=== PATIENT | female | born 1945 | race Caucasian/White ===

== ENCOUNTER 2017-05-16 13:28 | Emergency (ER) | payer MEDICARE, OTHER ==
[~2017-05-16] VITALS: Ht 154.9 cm; Wt 68.7 kg
[~2017-05-16 13:28] MED LIST: ALEN70 PO; BENI20TA25 PO; CYMB60CA PO; EZET10 PO; HYDR15TA PO; LIPI10TA PO
[2017-05-16 14:17] VITALS: BP 147/70; PULSE 80; RESP 16; TEMP 97.9; O2SAT 98
[2017-05-16] MEDS ORDERED: SODIUM CHLOR 0.9% 1000 ML INJ 1,000 ML IV SCH (14:34)
[2017-05-16] MEDS ORDERED: CYMB60CA PO (14:43)
[2017-05-16] MEDS ORDERED: BENI5TAB4 PO (14:43)
[2017-05-16] MEDS ORDERED: CYMB30CA PO (14:43)
[2017-05-16] MEDS ORDERED: LIPI10TA PO (14:43)
[2017-05-16] MEDS ORDERED: PLAQ200T PO (14:43)
[2017-05-16] MEDS ORDERED: FOSA70TA PO (14:43)
[2017-05-16] MEDS ORDERED: ONDANSETRON HCL 4 MG/2 ML VIAL IVP ONE (14:45)
[2017-05-16] MEDS ORDERED: SODIUM CHLORIDE 0.9% FLUSH 10 ML FLUSH IV FLUSH PRN (14:45)
[2017-05-16] MEDS ORDERED: MORPHINE SULFATE 4 MG/ML INJ IV PUSH ONE (14:45)
[2017-05-16 14:57] VITALS: RESP 16; O2SAT 98
[2017-05-16 15:03] LABS: BILIRUBIN, URINE NEG (NEG); BLOOD, URINE TRACE (NEG); GLUCOSE,URINE NEG (NEG); KETONE, URINE NEG (NEG); NITRITE,URINE NEG (NEG); PH, URINE 5.5 (5.0-8.5); URINE COLOR YELLOW (YELLW/STRAW); URINE LEUKOCYTE ESTERASE NEG (NEG)
[2017-05-16 15:05] LABS: AUTOMATED NEUTROPHIL # 3.1 TH/MM3 (1.8-7.7); BASOPHIL % 0.7 % (0.0-2.0); EOSINOPHIL # 0.1 TH/MM3 (0-0.4); EOSINOPHIL % 2.8 % (0.0-4.0); HEMATOCRIT 38.7 % (35.0-46.0); HEMOGLOBIN 12.8 GM/DL (11.6-15.3); LYMPH % 19.1 % (9.0-44.0); LYMPHOCYTE # 0.8 TH/MM3 (1.0-4.8); MEAN CELL VOLUME 90.7 FL (80.0-100.0); MEAN CORPUSCULAR HGB CONC 33.2 % (32.0-36.0); MEAN PLATELET VOLUME 6.9 FL (7.0-11.0); MONO % 9.3 % (0.0-8.0); MONOCYTE # 0.4 TH/MM3 (0-0.9); NEUT % 68.1 % (16.0-70.0); PLATELET COUNT 235 TH/MM3 (150-450); RED BLOOD COUNT 4.27 MIL/MM3 (4.00-5.30); RED CELL DISTRIBUTION WIDTH 13.2 % (11.6-17.2); WHITE BLOOD COUNT 4.4 TH/MM3 (4.0-11.0)
[2017-05-16 15:13] LABS: RBC, URINE 0-3 /hpf (0-3); SQUAMOUS EPITHELIAL CELL URINE 0-5 /hpf (0-5); WBC, URINE 0-2 /hpf (0-5)
[2017-05-16 15:14] LABS: CHLORIDE 105 MEQ/L (98-107); SODIUM (NA) 139 MEQ/L (136-145)
[2017-05-16 15:17] LABS: CALCIUM 8.2 MG/DL (8.5-10.1)
[2017-05-16 15:18] LABS: ALBUMIN 3.4 GM/DL (3.4-5.0); BICARBONATE 27.4 MEQ/L (21.0-32.0); BLOOD UREA NITROGEN 8 MG/DL (7-18); GLUCOSE,RANDOM 95 MG/DL (74-106)
[2017-05-16 15:20] LABS: ALT (GPT) 22 U/L (10-53)
[2017-05-16 15:21] LABS: AST (GOT) 20 U/L (15-37); CREATININE 0.66 MG/DL (0.50-1.00); GLOMERULAR FILTRATION RATE 89 ML/MIN (>89)
[2017-05-16 15:22] LABS: TOTAL BILIRUBIN ADULT 0.5 MG/DL (0.2-1.0); TOTAL PROTEIN 6.7 GM/DL (6.4-8.2)
[2017-05-16 15:23] LABS: ALKALINE PHOSPHATASE 65 U/L (45-117)
[2017-05-16] MEDS ORDERED: IOHEXOL 350 MG/ML 10 ML VIAL (for RAD DIAG) IVCONTRAST ONE (15:40)
--- NOTE | 2017-05-16 15:59 | RADRPT ---
EXAM DATE/TIME: 05/16/2017 15:37 [facility] COMPARISON: No previous studies available for comparison. INDICATIONS : Left lower quadrant abdomen pain. IV CONTRAST: 100 cc Omnipaque 350 (iohexol) IV ORAL CONTRAST: No oral contrast ingested. RADIATION DOSE: 14.35 CTDIvol (mGy) MEDICAL HISTORY : Hypertension. SURGICAL HISTORY : None. ENCOUNTER: Initial ACUITY: 3 days PAIN SCALE: 7/10 LOCATION: Left lower quadrant abdomen TECHNIQUE: Volumetric scanning of the abdomen and pelvis was performed. Using automated exposure control and ad justment of the mA and/or kV according to patient size, radiation dose was kept as low as reasonably achievable to obtain optimal diagnostic quality images. DICOM format image data is available electro nically for review and comparison. FINDINGS: The lung base is are clear. The liver and spleen are free of focal defects Mild prominence of the pancreatic duct. I don't see pancreatitis. The adrenal glands are unremarkable. There is symmetrical renal function. There is no ascites or ad enopathy appreciated. The cecum and descending colon are unremarkable The descending and transverse colon appear normal In the pelvis there are multiple diverticuli in the sigmoid colon. The bladder and adnexal regions a re unremarkable. Review of bone windows reveals only degenerative changes. CONCLUSION: Probable mild chronic pancreatitis with dilatation of the pancreatic duct. There is mild gaseous distention without inflammatory changes. Multiple diverticuli sigmoid colon without diverticulitis. Cruz Robison MD FACR on May 16, 2017 at 15:54 Board Certified Radiologist. This report was verified electronically.
[2017-05-16] MEDS ORDERED: LOMO2.5T PO (16:14)
[2017-05-16] MEDS ORDERED: POTASSIUM CHLORIDE 20 MEQ CONTROLLED RELEASE TAB PO ONE (16:15)
--- NOTE | 2017-05-16 16:15 | PD ---
HPI Chief Complaint: GI Complaint Time Seen by Provider: 14:28 Travel History International Travel<30 days: No Contact w/Intl Traveler<30days: No Traveled to known affect area: No History of Present Illness HPI 71-year-old female reports 4-5 days of nausea and diarrhea. She denies bloody stool. She vomited several times on the first day of her symptoms however has not since. Subjective patient was started on Augmentin and Zofran for his a prior which patient states helped significantly. No fever. Generalized abdominal pain is reported which is slightly worse with palpation. Pain severity is 6/10. PFSH Past Medical History Autoimmune Disease: Yes (RHUMATOID ARTHRITIS) Depression: Yes High Cholesterol: Yes Diminished Hearing: No Hypertension: Yes Immunizations Current: Yes Tetanus Vaccination: < 5 Years PNEUMOCCOCAL Vaccine (Year): 2005 ?: Not Social History Alcohol Use: Yes (1 GLASS OF WINE A DAY) Tobacco Use: Yes (2 CIGS ADAY) Substance Use: No Allergies-Medications (Allergen,Severity, Reaction): Coded Allergies: No Known Allergies (Unverified Adverse Reaction, Unknown, 05/16/17) Reported Meds & Prescriptions Reported Meds & Active Scripts Active Reported Fosamax (Alendronate Sodium) 70 Mg Tab 70 Mg PO Q7D Lipitor (Atorvastatin Calcium) 10 Mg Tab 10 Mg PO HS Benicar (Olmesartan) 5 Mg Tab 10 Mg PO DAILY Plaquenil (Hydroxychloroquine Sulfate) 200 Mg Tab 400 Mg PO DAILY Take with food Cymbalta DR (Duloxetine HCl) 30 Mg Capdr 30 Mg PO DAILY Cymbalta DR (Duloxetine HCl) 60 Mg Capdr 60 Mg PO DAILY Review of Systems Except as stated in HPI: all other systems reviewed are Neg General / Constitutional: No: Fever Physical Exam Narrative GENERAL: 71-year-old female pleasant well-nourished well-developed Vital Signs Date Time Temp Pulse Resp B/P (MAP) Pulse Ox O2 Delivery O2 Flow Rate FiO2 05/16/17 14:57 16 98 Room Air 05/16/17 14:17 97.9 80 16 147/70 (95) 98 SKIN: Warm and dry. HEAD: Atraumatic. Normocephalic. EYES: Pupils equal and round. No scleral icterus. No injection or drainage. ENT: No nasal bleeding or discharge. Mucous membranes pink and moist. NECK: Trachea midline. No JVD. CARDIOVASCULAR: Regular rate and rhythm. RESPIRATORY: No accessory muscle use. Clear to auscultation. Breath sounds equal bilaterally. GASTROINTESTINAL: Mild generalized nonspecific tenderness is noted. Abdomen is soft. No rebound or guarding. MUSCULOSKELETAL: Extremities without clubbing, cyanosis, or edema. No obvious deformities. NEUROLOGICAL: Awake and alert. No obvious cranial nerve deficits. Motor grossly within normal limits. Five out of 5 muscle strength in the arms and legs. Normal speech. PSYCHIATRIC: Appropriate mood and affect; insight and judgment normal. Data Data Last Documented VS Vital Signs Date Time Temp Pulse Resp B/P (MAP) Pulse Ox O2 Delivery O2 Flow Rate FiO2 05/16/17 14:57 16 98 Room Air 05/16/17 14:17 97.9 80 147/70 (95) Vital signs reviewed Orders Orders Complete Blood Count With Diff (05/16/17 14:34) Comprehensive Metabolic Panel (05/16/17 14:34) Lipase (05/16/17 14:34) Urinalysis - C+S If Indicated (05/16/17 14:34) Ct Abd/Pel W Iv Contrast(Rout) (05/16/17 14:34) Iv Access Insert/Monitor (05/16/17 14:34) Ecg Monitoring (05/16/17 14:34) Oximetry (05/16/17 14:34) Morphine Inj (Morphine Inj) (05/16/17 14:45) Ondansetron Inj (Zofran Inj) (05/16/17 14:45) Sodium Chlor 0.9% 1000 Ml Inj (Ns 1000 M (05/16/17 14:34) Sodium Chloride 0.9% Flush (Ns Flush) (05/16/17 14:45) Iohexol 350 Inj (Omnipaque 350 Inj) (05/16/17 15:40) Ed Discharge Order (05/16/17 16:06) Labs Laboratory Tests Test 05/16/17 14:40 White Blood Count 4.4 TH/MM3 Red Blood Count 4.27 MIL/MM3 Hemoglobin 12.8 GM/DL Hematocrit 38.7 % Mean Corpuscular Volume 90.7 FL Mean Corpuscular Hemoglobin 30.0 PG Mean Corpuscular Hemoglobin Concent 33.2 % Red Cell Distribution Width 13.2 % Platelet Count 235 TH/MM3 Mean Platelet Volume 6.9 FL Neutrophils (%) (Auto) 68.1 % Lymphocytes (%) (Auto) 19.1 % Monocytes (%) (Auto) 9.3 % Eosinophils (%) (Auto) 2.8 % Basophils (%) (Auto) 0.7 % Neutrophils # (Auto) 3.1 TH/MM3 Lymphocytes # (Auto) 0.8 TH/MM3 Monocytes # (Auto) 0.4 TH/MM3 Eosinophils # (Auto) 0.1 TH/MM3 Basophils # (Auto) 0.0 TH/MM3 CBC Comment DIFF FINAL Differential Comment Urine Color YELLOW Urine Turbidity CLEAR Urine pH 5.5 Urine Specific [place] LESS/EQUAL 1.005 Urine Protein NEG mg/dL Urine Glucose (UA) NEG mg/dL Urine Ketones NEG mg/dL Urine Occult Blood TRACE Urine Nitrite NEG Urine Bilirubin NEG Urine Urobilinogen 0.2 MG/DL Urine Leukocyte Esterase NEG Urine RBC 0-3 /hpf Urine WBC 0-2 /hpf Urine Squamous Epithelial Cells 0-5 /hpf Microscopic Urinalysis Comment CULT NOT INDICATED Blood Urea Nitrogen 8 MG/DL Creatinine 0.66 MG/DL Random Glucose 95 MG/DL Total Protein 6.7 GM/DL Albumin 3.4 GM/DL Calcium Level 8.2 MG/DL Alkaline Phosphatase 65 U/L Aspartate Amino Transf (AST/SGOT) 20 U/L Alanine Aminotransferase (ALT/SGPT) 22 U/L Total Bilirubin 0.5 MG/DL Sodium Level 139 MEQ/L Potassium Level 3.3 MEQ/L Chloride Level 105 MEQ/L Carbon Dioxide Level 27.4 MEQ/L Anion Gap 7 MEQ/L Estimat Glomerular Filtration Rate 89 ML/MIN Lipase 180 U/L MDM Medical Decision Making Medical Screen Exam Complete: Yes Emergency Medical Condition: Yes Medical Record Reviewed: Yes Differential Diagnosis Constipation, Gastritis, Acute Cholecystitis, Biliary Colic, Pancreatitis, GOINS , Hepatitis, Bowel Obstruction, Cystitis, Mesenteric Ischemia, AAA, Appendicitis , Renal Stone/Hydronephrosis, GERD, perforated viscous Narrative Course CBC & BMP Diagram 05/16/17 14:40 Total Protein 6.7, Albumin 3.4, Calcium Level 8.2 L, Alkaline Phosphatase 65, Aspartate Amino Transf (AST/SGOT) 20, Alanine Aminotransferase (ALT/SGPT) 22, Total Bilirubin 0.5 Lipase is normal Urinalysis shows no UTI CT reveals possible mild chronic pancreatitis which is considered very unlikely in the absence of a history of pancreatitis and a normal lipase Patient reassessed at 4:00 PM and found to be resting comfortably. She reports feeling much better after IV fluids. the patient will be discharged with Lomotil. Potassium replenished here. Return precautions discussed. Diagnosis Primary Impression: Diarrhea Qualified Codes: R19.7 - Diarrhea, unspecified Additional Impressions: Abdominal pain Qualified Codes: R10.9 - Unspecified abdominal pain Hypokalemia Referrals: Primary Care Physician Med/Other Pt SpecificInfo: Prescription(s) given Scripts Diphenoxylate-Atropine (Lomotil) 2.5-0.025 Mg Tab 2 TAB PO Q6H Y for DIARRHEA, #12 TAB 0 Refills Prov: Kirit Smith MD 05/16/17 Disposition: DISCHARGE HOME Condition: Stable Kirit Smith MD May 16, 2017 16:15
== END 2017-05-16 16:51 | disposition home or self-care (01) ==
LOC: PHED 13:28
DX: R19.7 Diarrhea, unspecified (principal); R10.84 Generalized abdominal pain; E87.6 Hypokalemia; I10 Essential (primary) hypertension; E78.00 Pure hypercholesterolemia, unspecified; M06.9 Rheumatoid arthritis, unspecified; F32.9 Major depressive disorder, single episode, unspecified; Z72.0 Tobacco use; Z79.899 Other long term (current) drug therapy
CPT/HCPCS: 74177; 80053; 81001; 83690; 85025; 96361; 96374; 99285; J2270; J7030; Q9967

== ENCOUNTER 2017-05-27 07:19 | Emergency (ER) | payer MEDICARE ==
[~2017-05-27] VITALS: Ht 156.2 cm; Wt 68.7 kg
[~2017-05-27 07:19] MED LIST changes: -ALEN70 PO; -BENI20TA25 PO; +BENI5TAB4 PO; +CYMB30CA PO; -EZET10 PO; +FOSA70TA PO; -HYDR15TA PO; +LOMO2.5T PO; +PLAQ200T PO
[2017-05-27 07:24] VITALS: BP 145/86; PULSE 90; RESP 16; TEMP 99.3; O2SAT 97
[2017-05-27 07:37] LABS: BILIRUBIN, URINE NEG (NEG); BLOOD, URINE NEG (NEG); GLUCOSE,URINE NEG (NEG); KETONE, URINE NEG (NEG); NITRITE,URINE NEG (NEG); PH, URINE 6.5 (5.0-8.5); URINE LEUKOCYTE ESTERASE NEG (NEG)
[2017-05-27 07:38] LABS: URINE COLOR STRAW (YELLW/STRAW)
[2017-05-27 07:41] LABS: AMORPHOUS SEDIMENT, URINE FEW; SQUAMOUS EPITHELIAL CELL URINE 0-5 /hpf (0-5)
[2017-05-27] MEDS ORDERED: SODIUM CHLOR 0.9% 1000 ML INJ 1,000 ML IV SCH (08:47)
--- NOTE | 2017-05-27 08:53 | PD ---
HPI Chief Complaint: Abdominal Pain Time Seen by Provider: 08:39 Travel History International Travel<30 days: No Contact w/Intl Traveler<30days: No Traveled to known affect area: No History of Present Illness HPI Patient is a 71-year-old female who presents the emergency room complaints of abdominal pain. Patient reports that for the past 1-2 days, she has had increased pressure to her lower abdomen, reports that pain is worse to her pelvis. Patient reports that pain was intermittent in nature, was mild to moderate in nature, reports that pain increased today. Patient reports that today, when she has episodes of pain, pain is severe. Patient reports that sometimes pain does radiate to her back. Patient reports that she does have history of diverticulitis as well as history of ovarian cysts. Patient denies any nausea or vomiting with symptoms, patient denies any constipation or diarrhea. Patient did have a normal bowel movement this morning. Patient denies dysuria, urinary urgency or frequency. Patient with no other complaints at this time. PFSH Past Medical History Autoimmune Disease: Yes (RHUMATOID ARTHRITIS) Depression: Yes Cardiovascular Problems: Yes (HTN) High Cholesterol: Yes Diminished Hearing: No Hypertension: Yes Immunizations Current: Yes PNEUMOCCOCAL Vaccine (Year): 2005 LMP: MENOPAUSAL Past Surgical History Surgical History: No Previous Surgery Social History Alcohol Use: Yes (1 GLASS OF WINE A DAY) Tobacco Use: Yes (2 CIGS ADAY) Substance Use: No Allergies-Medications (Allergen,Severity, Reaction): Coded Allergies: No Known Allergies (Unverified Adverse Reaction, Unknown, 05/27/17) Reported Meds & Prescriptions Reported Meds & Active Scripts Active Lomotil (Diphenoxylate-Atropine) 2.5-0.025 Mg Tab 2 Tab PO Q6H PRN Reported Fosamax (Alendronate Sodium) 70 Mg Tab 70 Mg PO Q7D Lipitor (Atorvastatin Calcium) 10 Mg Tab 10 Mg PO HS Benicar (Olmesartan) 5 Mg Tab 10 Mg PO DAILY Plaquenil (Hydroxychloroquine Sulfate) 200 Mg Tab 400 Mg PO DAILY Take with food Cymbalta DR (Duloxetine HCl) 30 Mg Capdr 30 Mg PO DAILY Cymbalta DR (Duloxetine HCl) 60 Mg Capdr 60 Mg PO DAILY Review of Systems General / Constitutional: No: Fever Eyes: No: Visual changes HENT: No: Headaches Cardiovascular: No: Chest Pain or Discomfort Respiratory: No: Shortness of Breath Gastrointestinal: Positive: Abdominal Pain, No: Nausea, Vomiting, Diarrhea, Constipation, Loss of Appetite Genitourinary: No: Dysuria Musculoskeletal: No: Pain Skin: No Rash Neurologic: No: Weakness Psychiatric: No: Depression Endocrine: No: Polydipsia Hematologic/Lymphatic: No: Easy Bruising Physical Exam Narrative GENERAL: NAD SKIN: Focused skin assessment warm/dry. HEAD: Atraumatic. Normocephalic. EYES: Pupils equal and round. No scleral icterus. No injection or drainage. ENT: No nasal bleeding or discharge. Mucous membranes pink and moist. NECK: Trachea midline. No JVD. CARDIOVASCULAR: Regular rate and rhythm. No murmur appreciated. RESPIRATORY: No accessory muscle use. Clear to auscultation. Breath sounds equal bilaterally. GASTROINTESTINAL: Abdomen soft, increased tenderness to lower abdomen with no rebound or guarding on exam, nondistended. Hepatic and splenic margins not palpable. MUSCULOSKELETAL: No obvious deformities. No clubbing. No cyanosis. No edema. NEUROLOGICAL: Awake and alert. No obvious cranial nerve deficits. Motor grossly within normal limits. Normal speech. PSYCHIATRIC: Appropriate mood and affect; insight and judgment normal. Data Data Last Documented VS Vital Signs Date Time Temp Pulse Resp B/P (MAP) Pulse Ox O2 Delivery O2 Flow Rate FiO2 05/27/17 10:39 77 16 138/59 (85) 98 Room Air 05/27/17 07:24 99.3 Orders Orders Urinalysis - C+S If Indicated (05/27/17 07:27) Complete Blood Count With Diff (05/27/17 08:47) Comprehensive Metabolic Panel (05/27/17 08:47) Lipase (05/27/17 08:47) Prothrombin Time / Inr (Pt) (05/27/17 08:47) Act Partial Throm Time (Ptt) (05/27/17 08:47) Ct Abd/Pel W Iv Contrast(Rout) (05/27/17 08:47) Iv Access Insert/Monitor (05/27/17 08:47) Ecg Monitoring (05/27/17 08:47) Oximetry (05/27/17 08:47) NPO (05/27/17 08:47) Morphine Inj (Morphine Inj) (05/27/17 09:00) Ondansetron Inj (Zofran Inj) (05/27/17 09:00) Sodium Chlor 0.9% 1000 Ml Inj (Ns 1000 M (05/27/17 08:47) Sodium Chloride 0.9% Flush (Ns Flush) (05/27/17 09:00) Iohexol 350 Inj (Omnipaque 350 Inj) (05/27/17 10:25) Ciprofloxacin 400 Mg Premix (Cipro 400 M (05/27/17 11:00) Metronidazole 500 Mg Inj (Flagyl 500 Mg (05/27/17 11:00) Labs Laboratory Tests Test 05/27/17 07:30 05/27/17 09:25 05/27/17 10:15 Urine Collection Type CLEAN CATCH Urine Color STRAW Urine Turbidity CLEAR Urine pH 6.5 Urine Specific [place] LESS/EQUAL 1.005 Urine Protein NEG mg/dL Urine Glucose (UA) NEG mg/dL Urine Ketones NEG mg/dL Urine Occult Blood NEG Urine Nitrite NEG Urine Bilirubin NEG Urine Urobilinogen 0.2 MG/DL Urine Leukocyte Esterase NEG Urine Squamous Epithelial Cells 0-5 /hpf Urine Amorphous Sediment FEW Microscopic Urinalysis Comment CULT NOT INDICATED Urine Collection Time 0730 Prothrombin Time 10.2 SEC Prothromb Time International Ratio 1.0 RATIO Activated Partial Thromboplast Time 23.8 SEC Blood Urea Nitrogen 14 MG/DL Creatinine 0.66 MG/DL Random Glucose 95 MG/DL Total Protein 6.6 GM/DL Albumin 3.3 GM/DL Calcium Level 8.4 MG/DL Alkaline Phosphatase 69 U/L Aspartate Amino Transf (AST/SGOT) 17 U/L Alanine Aminotransferase (ALT/SGPT) 21 U/L Total Bilirubin 0.5 MG/DL Sodium Level 137 MEQ/L Potassium Level 3.9 MEQ/L Chloride Level 104 MEQ/L Carbon Dioxide Level 25.9 MEQ/L Anion Gap 7 MEQ/L Estimat Glomerular Filtration Rate 89 ML/MIN Lipase 125 U/L White Blood Count 7.9 TH/MM3 Red Blood Count 4.19 MIL/MM3 Hemoglobin 12.8 GM/DL Hematocrit 38.3 % Mean Corpuscular Volume 91.2 FL Mean Corpuscular Hemoglobin 30.6 PG Mean Corpuscular Hemoglobin Concent 33.5 % Red Cell Distribution Width 13.5 % Platelet Count 255 TH/MM3 Mean Platelet Volume 7.0 FL Neutrophils (%) (Auto) 80.4 % Lymphocytes (%) (Auto) 10.8 % Monocytes (%) (Auto) 7.1 % Eosinophils (%) (Auto) 1.3 % Basophils (%) (Auto) 0.4 % Neutrophils # (Auto) 6.3 TH/MM3 Lymphocytes # (Auto) 0.9 TH/MM3 Monocytes # (Auto) 0.6 TH/MM3 Eosinophils # (Auto) 0.1 TH/MM3 Basophils # (Auto) 0.0 TH/MM3 CBC Comment DIFF FINAL Differential Comment MDM Medical Decision Making Medical Screen Exam Complete: Yes Emergency Medical Condition: Yes Medical Record Reviewed: Yes Interpretation(s) Vital Signs Date Time Temp Pulse Resp B/P (MAP) Pulse Ox O2 Delivery O2 Flow Rate FiO2 05/27/17 07:24 99.3 90 16 145/86 (105) 97 Differential Diagnosis Differential includes UTI, diverticulitis, appendicitis, colitis, electrolyte abnormality, ovarian cysts Narrative Course 71-year-old female presents to emergency room with 1-2 days of lower abdominal pain. Overall, patient is nontoxic in evaluation, discussed need for lab work including CT of the abdomen and pelvis to evaluate pathology of lower abdominal pain. During the course of the patients emergency department visit, the patients history, examination, and differential diagnosis were reviewed with the patient. The patient was placed on a surveillance system monitor with oximetry and frequent blood pressure monitoring. The patient had an IV access obtained and blood work sent for analysis. The patient was initially provided IV fluids, IV morphine for pain as well as IV Zofran The patients laboratory studies were reviewed and remarkable for: CBC & BMP Diagram 05/27/17 09:25 Total Protein 6.6, Albumin 3.3 L, Calcium Level 8.4 L, Alkaline Phosphatase 69, Aspartate Amino Transf (AST/SGOT) 17, Alanine Aminotransferase (ALT/SGPT) 21, Total Bilirubin 0.5 05/27/17 10:15 Radiology studies were reviewed and remarkable for: Last Impressions Abdomen/Pelvis CT 05/27/17 0854 Signed Impressions: Service Date/Time: Saturday, May 27, 2017 10:20 - CONCLUSION: 1. Findings characteristic acute diverticulitis involving the sigmoid colon with wall thickening, inflammatory change in 2 tiny gas bubbles in the adjacent mesentery. There is no drainable fluid collection. 2. Stable appearance of pancreas with probable mild chronic pancreatitis. Lucio Hernández MD I reviewed all labs and studies with patient in detail. All incidental findings were reviewed with patient in detail. I offered patient admission to hospital for pain control and tx for acute diverticulitis. Patient does not want to be admitted to the hospital and would like to try outpatient treatment first. She will return to ER if symptoms worsen or progress. She will follow up with her pcp and GI doctor as soon as possible. Diagnosis Primary Impression: Acute diverticulitis Patient Instructions: General Instructions Additional Instructions: Please provide patient with a copy of their lab work and studies at discharge* * Please follow up with your primary care doctor in 2-3 days Return to the ER if symptoms worsen or progress Return to the ER as needed Please follow-up with a button pusher as soon as possible Please take all medications as prescribed Med/Other Pt SpecificInfo: Prescription(s) given Scripts Metronidazole (Flagyl) 500 Mg Tab 500 MG PO TID for Infection for 10 Days, TAB 0 Refills Prov: Hanna Maloney DO 05/27/17 Ciprofloxacin (Cipro) 500 Mg Tab 500 MG PO BID for Infection for 10 Days, #20 TAB 0 Refills Prov: Hanna Maloney DO 05/27/17 Disposition: DISCHARGE HOME Condition: Stable Hanna Maloney DO May 27, 2017 08:53
[2017-05-27] MEDS ORDERED: MORPHINE SULFATE 4 MG/ML INJ IV PUSH ONE (09:00)
[2017-05-27] MEDS ORDERED: ONDANSETRON HCL 4 MG/2 ML VIAL IVP ONE (09:00)
[2017-05-27] MEDS ORDERED: SODIUM CHLORIDE 0.9% FLUSH 10 ML FLUSH IV FLUSH PRN (09:00)
[2017-05-27 09:10] VITALS: O2SAT 94
[2017-05-27 09:25] VITALS: BP 133/63; PULSE 76; RESP 16; O2SAT 94
[2017-05-27 10:06] LABS: CHLORIDE 104 MEQ/L (98-107); SODIUM (NA) 137 MEQ/L (136-145)
[2017-05-27 10:07] LABS: ALBUMIN 3.3 GM/DL (3.4-5.0); BICARBONATE 25.9 MEQ/L (21.0-32.0); BLOOD UREA NITROGEN 14 MG/DL (7-18); CALCIUM 8.4 MG/DL (8.5-10.1); GLUCOSE,RANDOM 95 MG/DL (74-106)
[2017-05-27 10:10] LABS: ALT (GPT) 21 U/L (10-53); AST (GOT) 17 U/L (15-37); CREATININE 0.66 MG/DL (0.50-1.00); GLOMERULAR FILTRATION RATE 89 ML/MIN (>89)
[2017-05-27 10:12] LABS: TOTAL BILIRUBIN ADULT 0.5 MG/DL (0.2-1.0); TOTAL PROTEIN 6.6 GM/DL (6.4-8.2)
[2017-05-27 10:13] LABS: ALKALINE PHOSPHATASE 69 U/L (45-117)
[2017-05-27 10:19] LABS: AUTOMATED NEUTROPHIL # 6.3 TH/MM3 (1.8-7.7); BASOPHIL % 0.4 % (0.0-2.0); EOSINOPHIL # 0.1 TH/MM3 (0-0.4); EOSINOPHIL % 1.3 % (0.0-4.0); HEMATOCRIT 38.3 % (35.0-46.0); HEMOGLOBIN 12.8 GM/DL (11.6-15.3); LYMPH % 10.8 % (9.0-44.0); LYMPHOCYTE # 0.9 TH/MM3 (1.0-4.8); MEAN CELL VOLUME 91.2 FL (80.0-100.0); MEAN CORPUSCULAR HEMOGLOBIN 30.6 PG (27.0-34.0); MEAN CORPUSCULAR HGB CONC 33.5 % (32.0-36.0); MONO % 7.1 % (0.0-8.0); MONOCYTE # 0.6 TH/MM3 (0-0.9); NEUT % 80.4 % (16.0-70.0); PLATELET COUNT 255 TH/MM3 (150-450); RED BLOOD COUNT 4.19 MIL/MM3 (4.00-5.30); RED CELL DISTRIBUTION WIDTH 13.5 % (11.6-17.2); WHITE BLOOD COUNT 7.9 TH/MM3 (4.0-11.0)
[2017-05-27 10:23] LABS: PROTHROMBIN TIME - PATIENT 10.2 SEC (9.8-11.6)
[2017-05-27] MEDS ORDERED: IOHEXOL 350 MG/ML 10 ML VIAL (for RAD DIAG) IVCONTRAST ONE (10:25)
[2017-05-27 10:39] VITALS: BP 138/59; PULSE 77; RESP 16; O2SAT 98
--- NOTE | 2017-05-27 10:39 | RADRPT ---
EXAM DATE/TIME: 05/27/2017 10:20 [facility] COMPARISON: CT ABDOMEN & PELVIS W CONTRAST, May 16, 2017, 15:37. INDICATIONS : Lower abdominal and back pain. IV CONTRAST: 85 cc Omnipaque 350 (iohexol) IV ORAL CONTRAST: No oral contrast ingested. RADIATION DOSE: 13.33 CTDIvol (mGy) MEDICAL HISTORY : Hypercholesterolemia. Hypertension. SURGICAL HISTORY : None. ENCOUNTER: Initial ACUITY: 3 days PAIN SCALE: 3/10 LOCATION: lower quadrant TECHNIQUE: Volumetric scanning of the abdomen and pelvis was performed. Using automated exposure control and ad justment of the mA and/or kV according to patient size, radiation dose was kept as low as reasonably achievable to obtain optimal diagnostic quality images. DICOM format image data is available electro nically for review and comparison. FINDINGS: LOWER LUNGS: The visualized lower lungs are clear. LIVER: Homogeneous density stable cyst in the left lobe. There is no dilation of the biliary tree. No calci fied gallstones. SPLEEN: Normal size without lesion. PANCREAS: Stable in appearance with mild pancreatic ductal dilatation again noted in the head measuring 4-5 mm. There is no focal mass or inflammatory change. There is a small area of calcification. KIDNEYS: Normal in size and shape. There is no mass, stone or hydronephrosis. ADRENAL GLANDS: Within normal limits. VASCULAR: There is no aortic aneurysm. BOWEL/MESENTERY: There is new mild wall thickening and inflammatory change involving the sigmoid colon with multiple d iverticuli in this region. There are 2 tiny gas bubbles in the adjacent mesentery. There is no fluid collection. ABDOMINAL WALL: Within normal limits. RETROPERITONEUM: There is no lymphadenopathy. BLADDER: No wall thickening or mass. REPRODUCTIVE: Within normal limits. INGUINAL: There is no lymphadenopathy or hernia. MUSCULOSKELETAL: Within normal limits for patient age. CONCLUSION: 1. Findings characteristic acute diverticulitis involving the sigmoid colon with wall thickening, inf lammatory change in 2 tiny gas bubbles in the adjacent mesentery. There is no drainable fluid collect ion. 2. Stable appearance of pancreas with probable mild chronic pancreatitis. Lucio Hernández MD on May 27, 2017 at 10:32 Board Certified Radiologist. This report was verified electronically.
[2017-05-27] MEDS ORDERED: metroNIDAZOLE 500 MG INJ 100 ML IV ONE (11:00)
[2017-05-27] MEDS ORDERED: CIPROFLOXACIN 400 MG PREMIX 200 ML IV ONE (11:00)
[2017-05-27] MEDS ORDERED: METR-1 PO (11:36)
[2017-05-27] MEDS ORDERED: CIPR-9 PO (11:36)
[2017-05-27 12:06] VITALS: BP 150/63; PULSE 77; RESP 16; O2SAT 96
[2017-05-27 13:18] VITALS: BP 146/71; PULSE 78; RESP 16; O2SAT 98
== END 2017-05-27 13:30 | disposition home or self-care (01) ==
LOC: PHED 07:19
DX: K57.92 Diverticulitis of intestine, part unspecified, without perforation or abscess without bleeding (principal); M06.9 Rheumatoid arthritis, unspecified; F32.9 Major depressive disorder, single episode, unspecified; I10 Essential (primary) hypertension; E78.00 Pure hypercholesterolemia, unspecified; F17.210 Nicotine dependence, cigarettes, uncomplicated; Z79.899 Other long term (current) drug therapy
CPT/HCPCS: 74177; 80053; 81001; 83690; 85025; 85610; 85730; 96361; 96365; 96367; 96375; 99284; J0744; J2270; J2405; J7030; Q9967